=== PATIENT | female | born 1945 | race Caucasian/White ===

== ENCOUNTER → 2017-04-12 | Outpatient (CLI) | payer MEDICARE, MEDICAID | END | disposition home or self-care (01) | LOC: CFH 12:36 → EDSTATUS 12:45 | PROVIDERS: ATTEND Nurse Practitioner | DX: Z13.820 Encounter for screening for osteoporosis (principal); M81.0 Age-related osteoporosis without current pathological fracture; N95.1 Menopausal and female climacteric states | CPT/HCPCS: 77080 ==

== ENCOUNTER → 2018-05-15 | Outpatient (CLI) | payer MEDICARE, MEDICAID | END | disposition home or self-care (01) | LOC: MERGE 12:43 → CFH 12:43 | PROVIDERS: ATTEND Nurse Practitioner | DX: Z12.31 Encounter for screening mammogram for malignant neoplasm of breast (principal) | CPT/HCPCS: 77067 ==

== ENCOUNTER → 2018-06-05 | Outpatient (CLI) | payer MEDICARE, MEDICAID ==
[~2018-06-05] MED LIST: REGADENOSON 0.4 MG/5 ML SYRINGE ONE
== END | disposition home or self-care (01) ==
LOC: CFH 07:44
PROVIDERS: ATTEND Internal Medicine Cardiovascular Disease
DX: I10 Essential (primary) hypertension (principal); R93.1 Abnormal findings on diagnostic imaging of heart and coronary circulation; E11.9 Type 2 diabetes mellitus without complications
CPT/HCPCS: 78452; 93017; 93306; A9502; J2785

== ENCOUNTER → 2018-08-07 | Outpatient (CLI) | payer MEDICARE, MEDICAID | END | disposition home or self-care (01) | LOC: CARD 13:58 | PROVIDERS: ATTEND Internal Medicine Cardiovascular Disease | DX: I27.20 Pulmonary hypertension, unspecified (principal) | CPT/HCPCS: 94060; 94726; 94729 ==

== ENCOUNTER 2019-05-04 07:44 | Day surgery (SDC) | payer MEDICARE, MEDICAID ==
[~2019-05-04] VITALS: Ht 149.9 cm; Wt 82.0 kg
[2019-05-04] MEDS ORDERED: SODIUM CHLORIDE 0.9% 1,000 ML IV SCH (08:38)
[2019-05-04] MEDS ORDERED: PLEASE ENTER HEIGHT AND WEIGHT MC SCH (09:00)
[2019-05-04] MEDS ORDERED: PLEASE ENTER ALLERGIES MC SCH (09:00)
[2019-05-04 09:03] VITALS: BP 171/90
[2019-05-04 10:16] LABS: INTERNATIONAL NORMALIZED RATIO 0.97 (0.93-1.1); PROTHROMBIN TIME 10.2 Seconds (9.6-11.5)
== END 2019-05-04 10:38 | disposition home or self-care (01) ==
LOC: OUT 07:44 → EDSTATUS 09:30 → OUT 10:38
PROVIDERS: ATTEND Nurse Practitioner
DX: I48.91 Unspecified atrial fibrillation (principal); Z53.9 Procedure and treatment not carried out, unspecified reason
CPT/HCPCS: 36415; 85610; J7030

== ENCOUNTER 2019-08-16 23:46 | Emergency (ER) | payer MEDICARE, MEDICAID ==
[~2019-08-16] VITALS: Ht 152.4 cm; Wt 80.4 kg
[~2019-08-16 23:46] MED LIST changes: +ACET-1600 PO; +ASPI-515 PO; +ATOR40TA78 PO; +CALC0.25 PO; +CARV-39 PO; +CARV3.1212 PO; +CARV6.252 PO; +CHOL100015 PO; +CLON2TAB9 PO; +DOXA2TAB9 PO; +DOXA4TAB3 PO; +ERGO500017 PO; +FURO20TA3 PO; +INSULIN SC; +LEVO50TA5 PO; +LINA5TAB PO; +LOSA100T14 PO; +MULT-658 PO; +RANI-467 PO; -REGADENOSON 0.4 MG/5 ML SYRINGE ONE; +TORS20TA PO
[2019-08-17 00:33] VITALS: BP 195/82
== END 2019-08-17 01:08 | disposition home or self-care (01) ==
LOC: ED 08-17 01:02
DX: E11.65 Type 2 diabetes mellitus with hyperglycemia (principal); I12.0 Hypertensive chronic kidney disease with stage 5 chronic kidney disease or end stage renal disease; E11.22 Type 2 diabetes mellitus with diabetic chronic kidney disease; N18.5 Chronic kidney disease, stage 5; E03.9 Hypothyroidism, unspecified; Z90.49 Acquired absence of other specified parts of digestive tract; Z99.2 Dependence on renal dialysis
CPT/HCPCS: 99282

== ENCOUNTER 2019-08-20 13:45 | Emergency (ER) | payer MEDICARE, MEDICAID ==
[~2019-08-20] VITALS: Ht 152.4 cm; Wt 77.3 kg
--- NOTE | 2019-08-20 14:00 | NUR ---
EKG performed in triage.
--- NOTE | 2019-08-20 14:20 | NUR ---
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
--- NOTE | 2019-08-20 14:39 | NUR ---
PT HERE TODAY FOR DIZZINESS, ANXIETY, AND A SORE THROAT. PER PT'S FAMILY PT HAS BEEN MORE ANXIOUS THAN NORMAL LATELY. PT RESTING ON GURNEY. NADN. HYPERTENSIVE AT THIS TIME. FAMILY AT BEDSIDE WITH PT. LAB AT BEDSIDE DRAWING BLOOD NOW.
--- NOTE | 2019-08-20 14:53 | NUR ---
MD AT BEDSIDE ASSESSING PT NOW.
[2019-08-20] MEDS ORDERED: FURO40TA6 PO (14:56)
[2019-08-20] MEDS ORDERED: ALPR0.5T PO (14:56)
[2019-08-20 15:00] LABS: ALBUMIN 2.6 g/dL (3.4-5.0); ANION GAP 5 mmol/L (5-15); CALCIUM 7.8 mg/dL (8.5-10.1); CHLORIDE 94 mmol/L (98-107); CREATININE 2.24 mg/dL (0.55-1.02)
[2019-08-20] MEDS ORDERED: hydrALAzine 20 MG/ML, 1ML IV ONE ×2 (15:00→18:00)
[2019-08-20 15:03] LABS: BASOPHILS % (AUTO) 0 % (0-1); EOSINOPHILS # (AUTO) 0.05 x10^3/uL (0-0.4); EOSINOPHILS % (AUTO) 1 % (1-7); LYMPHOCYTES # (AUTO) 0.95 x10^3/uL (1-3.4); LYMPHOCYTES % (AUTO) 11 % (22-44); MD NO; MEAN CORPUSCULAR HEMOGLOBIN 33.2 pg (27.0-34.8); MEAN CORPUSCULAR HGB CONC 33.1 g/dL (32.4-35.8); MEAN CORPUSCULAR VOLUME 100.3 fL (80-100); MEAN PLATELET VOLUME 6.7 fL (7.4-10.4); MONOCYTES # (AUTO) 0.83 x10^3/uL (0.2-0.8); MONOCYTES % (AUTO) 9 % (2-9); NEUTROPHILS # (AUTO) 7.17 x10^3/uL (1.8-6.8); NEUTROPHILS % (AUTO) 80 % (42-75); PLATELET COUNT 296 x10^3/uL (130-400); RED CELL DISTRIBUTION WIDTH 15.6 % (9.6-15.2)
[2019-08-20] MEDS ORDERED: hydrALAzine 20 MG/ML, 1ML ONE ×2 (15:05→17:57)
[2019-08-20] MEDS ORDERED: hydrOXyzine 50MG TABLET ONE (15:05)
--- NOTE | 2019-08-20 15:18 | NUR ---
PT MEDICATED PER EMAR. RESTING ON GURNEY. RONALN.
--- NOTE | 2019-08-20 16:03 | NUR ---
PT BACK FROM CT, RESTING ON SATCI.
[2019-08-20] MEDS ORDERED: METOCLOPRAMIDE 5 MG/ML, 2ML IVPush ONE (17:00)
[2019-08-20] MEDS ORDERED: METOCLOPRAMIDE 5 MG/ML, 2ML ONE (17:16)
--- NOTE | 2019-08-20 17:18 | NUR ---
PT MEDICATED PER EMAR. RESTING ON GURNEY. CONTINUES TO BE HYPERTENSIVE. IS REFUSING ADMISSION. AWARE.
[2019-08-20 17:20] VITALS: BP 165/104
--- NOTE | 2019-08-20 17:44 | NUR ---
MD AT BEDSIDE DISCUSSING POC WITH PT AND PT'S FAMILY NOW.
--- NOTE | 2019-08-20 18:01 | NUR ---
PT MEDICATED PER EMAR. RESTING ON GURNEY. HYPERTENSIVE. MD AWARE. TO BE DC. GETTING DRESSED NOW.
== END 2019-08-20 18:35 | disposition home or self-care (01) ==
LOC: ED 18:15
DX: I12.0 Hypertensive chronic kidney disease with stage 5 chronic kidney disease or end stage renal disease (principal); E11.22 Type 2 diabetes mellitus with diabetic chronic kidney disease; N18.5 Chronic kidney disease, stage 5; G47.01 Insomnia due to medical condition; Z90.49 Acquired absence of other specified parts of digestive tract; Z99.2 Dependence on renal dialysis
CPT/HCPCS: 36415; 70450; 80048; 82040; 85025; 93005; 96374; 96375; 96376; 99291; J0360; J2765; Q0177

== ENCOUNTER 2019-10-03 16:28 | Emergency (ER) | payer MEDICARE, MEDICAID ==
[~2019-10-03] VITALS: Ht 157.5 cm; Wt 68.6 kg
[~2019-10-03 16:28] MED LIST changes: +ALPR0.5T PO; +FURO40TA6 PO
[2019-10-03 16:43] VITALS: BP 128/52
--- NOTE | 2019-10-03 17:42 | NUR ---
PT HAS CO OF ABDOMINAL PAIN IN LEFT UP QUAD ON THE SIDE. PT IS ON DIAYLSIS, PORT RIGHT CHEST, M,W,FRI. PT HAD 1 EPISODE OF VOMITING YESTERDAY, NONE TODAY. PT STATES SHE THINKS ITS GAS. PT IS PASSING GAS, REGULAR BM. DENIES CP, SOB, DIFFICULTY URINATING. FAMILY AT BEDSIDE TRANSLATING.
[2019-10-03 18:35] LABS: BASOPHILS # (AUTO) 0.03 x10^3/uL (0-0.1); BASOPHILS % (AUTO) 0 % (0-1); EOSINOPHILS # (AUTO) 0.07 x10^3/uL (0-0.4); EOSINOPHILS % (AUTO) 1 % (1-7); LYMPHOCYTES # (AUTO) 1.14 x10^3/uL (1-3.4); LYMPHOCYTES % (AUTO) 15 % (22-44); MD NO; MEAN CORPUSCULAR HGB CONC 33.2 g/dL (32.4-35.8); MEAN CORPUSCULAR VOLUME 99.2 fL (80-100); MEAN PLATELET VOLUME 7.7 fL (7.4-10.4); MONOCYTES # (AUTO) 0.72 x10^3/uL (0.2-0.8); MONOCYTES % (AUTO) 9 % (2-9); NEUTROPHILS # (AUTO) 5.87 x10^3/uL (1.8-6.8); NEUTROPHILS % (AUTO) 75 % (42-75); PLATELET COUNT 284 x10^3/uL (130-400); RED BLOOD COUNT 3.47 x10^6/uL (3.82-5.3); RED CELL DISTRIBUTION WIDTH 14.7 % (9.6-15.2)
[2019-10-03 18:42] LABS: ALANINE AMINOTRANSFERASE 24 U/L (12-78); ALBUMIN 3.3 g/dL (3.4-5.0); ANION GAP 9 mmol/L (5-15); CALCIUM 9.2 mg/dL (8.5-10.1); CHLORIDE 92 mmol/L (98-107); CREATININE 3.07 mg/dL (0.55-1.02)
[2019-10-03 18:44] LABS: ALKALINE PHOSPHATASE 93 U/L (45-117); BILIRUBIN,TOTAL 0.7 mg/dL (0.2-1.0); TOTAL PROTEIN 7.2 g/dL (6.4-8.2)
--- NOTE | 2019-10-03 19:05 | NUR ---
Patient/Caregiver given discharge instructions and they have confirmed that they understand the instructions. Patient ambulatory with steady gait.
--- NOTE | 2019-10-03 19:29 | NUR ---
Patient/Caregiver given discharge instructions and they have confirmed that they understand the instructions. Patient ambulatory with steady gait.
== END 2019-10-03 19:30 | disposition home or self-care (01) ==
LOC: ED 17:41
DX: R10.12 Left upper quadrant pain (principal); R10.13 Epigastric pain; I12.0 Hypertensive chronic kidney disease with stage 5 chronic kidney disease or end stage renal disease; E11.22 Type 2 diabetes mellitus with diabetic chronic kidney disease; N18.5 Chronic kidney disease, stage 5; E03.9 Hypothyroidism, unspecified; Z90.49 Acquired absence of other specified parts of digestive tract
CPT/HCPCS: 36415; 74021; 80053; 83690; 85025; 93005; 99284

== ENCOUNTER → 2020-08-19 | Outpatient (CLI) | payer MEDICARE, MEDICAID ==
[~2020-08-19] MED LIST changes: +ESCI10TA10 PO; +ESTA2TAB PO; +HYDR-3343 PO; +MELA1TAB8 PO; +OMEP-110 PO; +REGADENOSON 0.4 MG/5 ML SYRINGE ONE
== END | disposition home or self-care (01) ==
LOC: RAD 07:35
PROVIDERS: ATTEND Internal Medicine Cardiovascular Disease
DX: I25.9 Chronic ischemic heart disease, unspecified (principal); R93.1 Abnormal findings on diagnostic imaging of heart and coronary circulation; I10 Essential (primary) hypertension
CPT/HCPCS: 78452; 93017; A9502; J2785

== ENCOUNTER 2020-08-29 12:17 | Day surgery (SDC) | payer MEDICARE, MEDICAID ==
[~2020-08-29] VITALS: Ht 142.2 cm; Wt 63.0 kg
[~2020-08-29 12:17] MED LIST changes: -REGADENOSON 0.4 MG/5 ML SYRINGE ONE
[2020-08-29 13:29] VITALS: BP 140/81
[2020-08-29] MEDS ORDERED: CHLORHEXIDINE 15 ML UDC MM STA (13:35)
[2020-08-29] MEDS ORDERED: BUPIVACAINE/PF 0.25% ONE (13:59)
[2020-08-29] MEDS ORDERED: PAPAVERINE 30 MG/ML, 2ML ONE (13:59)
[2020-08-29] MEDS ORDERED: HEPARIN 1,000 UNITS/ML, 10ML ONE (14:00)
[2020-08-29] MEDS ORDERED: LIDOCAINE/PF 1%, 30ML ONE (14:00)
[2020-08-29] MEDS ORDERED: LACTATED RINGERS 1,000 ML IV SCH (14:00)
[2020-08-29 14:27] LABS: BASOPHILS % (AUTO) 1 % (0-1); EOSINOPHILS % (AUTO) 2 % (1-7); LYMPHOCYTES % (AUTO) 10 % (22-44); MEAN CORPUSCULAR HEMOGLOBIN 33.5 pg (27.0-34.8); MEAN PLATELET VOLUME 8.6 fL (7.4-10.4); MONOCYTES % (AUTO) 8 % (2-9); NEUTROPHILS % (AUTO) 80 % (42-75); PLATELET COUNT 210 x10^3/uL (130-400); RED BLOOD COUNT 3.39 x10^6/uL (3.82-5.3); RED CELL DISTRIBUTION WIDTH 14.5 % (9.6-15.2)
[2020-08-29] MEDS ORDERED: PROMETHAZINE 25 MG/ML, 1ML IVPush PRN (14:30)
[2020-08-29] MEDS ORDERED: SODIUM CHLORIDE 0.9% 1,000 ML IV SCH (14:30)
[2020-08-29] MEDS ORDERED: HYDROmorphone 1 MG/ML, 1ML INJ IVPush PRN (14:30)
[2020-08-29] MEDS ORDERED: OXYcodone 5 MG/5 ML ORAL.SOL UDC PO PRN (14:30)
[2020-08-29] MEDS ORDERED: HALOPERIDOL 5 MG/ML IV PRN (14:30)
[2020-08-29] MEDS ORDERED: FENTANYL PF 100 MCG/2ML IV PRN (14:30)
[2020-08-29] MEDS ORDERED: LABETALOL 5MG/ML, 20ML IV PRN (14:30)
[2020-08-29] MEDS ORDERED: hydrALAzine 20 MG/ML, 1ML IV PRN (14:30)
[2020-08-29 14:36] LABS: ANION GAP 12 mmol/L (5-15); CALCIUM 8.8 mg/dL (8.5-10.1); CHLORIDE 94 mmol/L (98-107)
[2020-08-29 14:37] LABS: CREATININE 6.49 mg/dL (0.55-1.02)
[2020-08-29 14:40] LABS: MD NO
[2020-08-29] MEDS ORDERED: FENTANYL PF 100 MCG/2ML ONE (15:41)
[2020-08-29] MEDS ORDERED: NEOSTIGMINE 1 MG/ML, 10ML ONE (16:23)
[2020-08-29] MEDS ORDERED: ONDANSETRON 2MG/ML, 2ML ONE ×2 (16:23→19:11)
[2020-08-29] MEDS ORDERED: DEXAMETHASONE 4 MG/ML, 1ML ONE (16:23)
[2020-08-29] MEDS ORDERED: CEFAZOLIN 1,000 MG ONE (16:23)
[2020-08-29] MEDS ORDERED: SUCCINYLCHOLINE 20 MG/ML, 10ML ONE (16:23)
[2020-08-29] MEDS ORDERED: GLYCOPYRROLATE 0.2MG/1ML, 5ML ONE (16:23)
[2020-08-29] MEDS ORDERED: ROCURONIUM 10MG/ML,5ML ONE (16:23)
[2020-08-29] MEDS ORDERED: PROPOFOL 10 MG/ML, 20ML ONE (16:23)
[2020-08-29] MEDS ORDERED: SODIUM CHLORIDE 0.9% IVPB ONE (20:30)
[2020-08-29] MEDS ORDERED: DESMOPRESSIN IVPB ONE (20:30)
[2020-08-29] MEDS ORDERED: HYDROcodone/APAP 5/325 TABLET ONE (20:32)
== END 2020-08-29 22:20 | disposition home or self-care (01) ==
LOC: OR 12:17
PROVIDERS: ATTEND Surgery
DX: E11.22 Type 2 diabetes mellitus with diabetic chronic kidney disease (principal); I12.0 Hypertensive chronic kidney disease with stage 5 chronic kidney disease or end stage renal disease; N18.6 End stage renal disease; E03.9 Hypothyroidism, unspecified; E87.1 Hypo-osmolality and hyponatremia; K21.9 Gastro-esophageal reflux disease without esophagitis; G47.33 Obstructive sleep apnea (adult) (pediatric); I27.20 Pulmonary hypertension, unspecified; E21.3 Hyperparathyroidism, unspecified; Z79.4 Long term (current) use of insulin; Z79.899 Other long term (current) drug therapy
CPT/HCPCS: 36415; 36832; 80048; 82962; 85025; 87635; 93005; J0330; J0690; J1100; J1644; J2405; J2704; J3010; J7030; J2710; J2440

== ENCOUNTER 2020-09-09 09:54 | Inpatient (IN) | payer MEDICARE, MEDICAID ==
[~2020-09-09] VITALS: Ht 152.4 cm; Wt 65.3 kg
--- NOTE | 2020-09-09 10:50 | NUR ---
PT HERE FOR "ABNORMAL RESULTS" ON ECHOCARDIOGRAM WHICH WAS DONE THREE WEEKS AGO, NO ONE TOLD THE PT WHAT THE ABNORMAL RESULT WAS, PT HERE TO FIND OUT. PT HAD A STRESS TEST ALSO AT THAT TIME, PT WAS TOLD THAT WAS NORMAL. PT DENIES CP/SOB, PAIN OF ANY KIND.
--- NOTE | 2020-09-09 12:07 | NUR ---
ERP IN TO UPDATE PT ON POC, PT TO BE ADMITTED. PIV INITIATED, BC X1 SET DRAWN. VSS, NO NEEDS AT THIS TIME
[2020-09-09 12:35] LABS: HCT (SEDRATE) 29.8 % (34.6-47.8)
[2020-09-09 12:36] LABS: BASOPHILS % (AUTO) 1 % (0-1); EOSINOPHILS % (AUTO) 1 % (1-7); LYMPHOCYTES % (AUTO) 8 % (22-44); MEAN CORPUSCULAR HEMOGLOBIN 33.4 pg (27.0-34.8); MEAN CORPUSCULAR HGB CONC 33.3 g/dL (32.4-35.8); MEAN PLATELET VOLUME 8.3 fL (7.4-10.4); MONOCYTES % (AUTO) 8 % (2-9); NEUTROPHILS % (AUTO) 83 % (42-75); PLATELET COUNT 226 x10^3/uL (130-400); RED BLOOD COUNT 3.01 x10^6/uL (3.82-5.3); RED CELL DISTRIBUTION WIDTH 15.2 % (9.6-15.2)
[2020-09-09 12:44] LABS: ALBUMIN 3.5 g/dL (3.4-5.0); ANION GAP 11 mmol/L (5-15); C-REACTIVE PROTEIN, QUANT 0.94 mg/dL (0.02-0.49); CALCIUM 8.8 mg/dL (8.5-10.1); CHLORIDE 91 mmol/L (98-107); CREATININE 4.53 mg/dL (0.55-1.02)
[2020-09-09 12:54] LABS: MD NO
--- NOTE | 2020-09-09 13:44 | NUR ---
PT REPOSITIONED ON GURNEY FOR COMFORT, DAUGHTER AT BEDSIDE, VSS, NAD NOTED. AWAITING BED PLACEMENT
--- NOTE | 2020-09-09 14:57 | NUR ---
SPOKE WITH HOSPITALIST, LUZ MARIA NOT TO HAPPEN TODAY, PT MAY EAT, WILL UPDATE FAMILY/PT
[2020-09-09] MEDS ORDERED: ONDANSETRON ODT 4 MG PO PRN (15:00)
[2020-09-09] MEDS: HEPARIN 5,000 UNITS/ML, 1ML SQ SCH ×2 (15:00→23:00)
[2020-09-09] MEDS ORDERED: ONDANSETRON 2MG/ML, 2ML IVPush PRN (15:00)
[2020-09-09] MEDS ORDERED: ERGOCALCIFEROL 50,000 UNIT CAPSULE PO SCH (15:00)
--- NOTE | 2020-09-09 15:46 | NUR ---
MEAL TRAY PROVIDED TO PT, REPORT GIVEN BY SHEFALI BLACK. AWAITING TRANSPORT
[2020-09-09] MEDS: INSULIN LISPRO 100 UNITS/ML, PEN SQ-INSULIN SCH ×2 (16:00→21:00)
[2020-09-09 16:15] VITALS: BP 135/57
[2020-09-09] MEDS ORDERED: MELATONIN 5 MG TABLET PO PRN (16:30)
[2020-09-09] MEDS: CARVEDILOL 3.125 MG TABLET PO SCH (17:17)
[2020-09-09] MEDS: ACETAMINOPHEN 325 MG TABLET PO PRN (18:44)
[2020-09-09 19:32] VITALS: BP 136/91
[2020-09-09] MEDS ORDERED: TEMPLATE NON-FORMULARY MED. (Melatonin/Pyridoxine Hcl (B6)** (Melatonin 5 Mg Tablet**) 1 T PO SCH (21:00)
[2020-09-09] MEDS ORDERED: MELATONIN 5 MG TABLET PO SCH (21:00)
[2020-09-09] MEDS ORDERED: ATORVASTATIN 40 MG TABLET PO SCH (21:00)
[2020-09-09] MEDS ORDERED: DOXAZOSIN 2MG TABLET PO SCH (21:00)
[2020-09-10 00:26] VITALS: BP 134/83
[2020-09-10] MEDS: ACETAMINOPHEN 325 MG TABLET PO PRN ×2 (00:36→12:47)
[2020-09-10] MEDS: CARVEDILOL 3.125 MG TABLET PO SCH (05:03)
[2020-09-10] MEDS: HEPARIN 5,000 UNITS/ML, 1ML SQ SCH ×2 (05:03→15:00)
[2020-09-10] MEDS ORDERED: LEVOTHYROXINE 75 MCG TABLET PO SCH (06:00)
[2020-09-10 06:53] VITALS: BP 114/68
[2020-09-10 06:54] VITALS: BP 124/79
[2020-09-10 06:57] LABS: BASOPHILS % (AUTO) 1 % (0-1); EOSINOPHILS % (AUTO) 2 % (1-7); LYMPHOCYTES % (AUTO) 12 % (22-44); MEAN CORPUSCULAR HEMOGLOBIN 33.3 pg (27.0-34.8); MEAN CORPUSCULAR HGB CONC 33.6 g/dL (32.4-35.8); MONOCYTES % (AUTO) 10 % (2-9); NEUTROPHILS % (AUTO) 75 % (42-75); PLATELET COUNT 207 x10^3/uL (130-400); RED BLOOD COUNT 2.86 x10^6/uL (3.82-5.3); RED CELL DISTRIBUTION WIDTH 15.1 % (9.6-15.2)
[2020-09-10] MEDS: INSULIN LISPRO 100 UNITS/ML, PEN SQ-INSULIN SCH ×2 (07:00→12:46)
[2020-09-10 07:01] LABS: MD NO
[2020-09-10 07:11] LABS: ALANINE AMINOTRANSFERASE 18 U/L (12-78); ALBUMIN 3.1 g/dL (3.4-5.0); ANION GAP 10 mmol/L (5-15); CALCIUM 8.4 mg/dL (8.5-10.1); CHLORIDE 100 mmol/L (98-107); CREATININE 3.19 mg/dL (0.55-1.02)
[2020-09-10 07:16] LABS: ALKALINE PHOSPHATASE 93 U/L (45-117); BILIRUBIN,TOTAL 0.9 mg/dL (0.2-1.0); TOTAL PROTEIN 6.7 g/dL (6.4-8.2)
[2020-09-10] MEDS ORDERED: OMEPRAZOLE 20 MG CAPSULE.DR PO SCH (07:30)
[2020-09-10 07:33] LABS: D-DIMER 1.62 ug/mlFEU (0.00-0.52)
[2020-09-10] MEDS ORDERED: FUROSEMIDE 40 MG TABLET PO SCH (09:00)
[2020-09-10] MEDS ORDERED: ASPIRIN 81 MG TABLET EC PO SCH (09:00)
[2020-09-10] MEDS ORDERED: ESCITALOPRAM 10MG TABLET PO SCH (09:00)
[2020-09-10] MEDS ORDERED: MULTIVITAMIN 1 TABLET PO SCH (09:00)
[2020-09-10] MEDS ORDERED: PYRIDOXINE (VITAMIN B6) 100 MG TAB PO SCH (09:00)
[2020-09-10] MEDS ORDERED: CALCITRIOL 0.25 MCG CAPSULE PO SCH (09:00)
[2020-09-10 12:06] VITALS: BP 111/71
[2020-09-10] MEDS ORDERED: DOXA2TAB9 PO (16:04)
[2020-09-10] MEDS ORDERED: HYDR-3343 PO (16:04)
[2020-09-10] MEDS ORDERED: CARV3.1212 PO (16:04)
== END 2020-09-10 16:50 | disposition home or self-care (01) | DRG 306 ==
LOC: ED 10:46 → EDIP 13:13 → 4WST 14:16 → EDIP 14:22 → 4WST 14:23 → EDIP 14:25 → 4WST 16:07 → DCLOUNGE 09-10 16:40
PROVIDERS: ADMIT Hospitalist; ATTEND Internal Medicine
DX: I38 Endocarditis, valve unspecified (principal); N18.6 End stage renal disease; E87.1 Hypo-osmolality and hyponatremia; I13.2 Hypertensive heart and chronic kidney disease with heart failure and with stage 5 chronic kidney disease, or end stage renal disease; I50.32 Chronic diastolic (congestive) heart failure; N04.9 Nephrotic syndrome with unspecified morphologic changes; D53.9 Nutritional anemia, unspecified; E03.9 Hypothyroidism, unspecified; E11.22 Type 2 diabetes mellitus with diabetic chronic kidney disease; G47.33 Obstructive sleep apnea (adult) (pediatric); I07.1 Rheumatic tricuspid insufficiency; D63.8 Anemia in other chronic diseases classified elsewhere; I05.0 Rheumatic mitral stenosis; I25.10 Atherosclerotic heart disease of native coronary artery without angina pectoris; K29.70 Gastritis, unspecified, without bleeding; Z99.2 Dependence on renal dialysis; Z79.4 Long term (current) use of insulin; Z79.890 Hormone replacement therapy; Z90.49 Acquired absence of other specified parts of digestive tract
CPT/HCPCS: 36415; 71045; 80048; 80053; 81240; 82040; 82378; 82962; 83605; 83735; 83880; 84100; 84145; 85025; 85300; 85301; 85302; 85303; 85305; 85306; 85379; 85384; 85651; 86038; 86140; 86301; 86304; 87040; 90935; 93005; 99291; G0378; J1815

== ENCOUNTER → 2020-09-09 | Outpatient (CLI) | payer MEDICARE, MEDICAID | END | disposition home or self-care (01) | LOC: CVU 08:16 | PROVIDERS: ATTEND Internal Medicine Cardiovascular Disease | DX: I08.8 Other rheumatic multiple valve diseases (principal); I11.9 Hypertensive heart disease without heart failure | CPT/HCPCS: 93306 ==

== ENCOUNTER 2020-09-21 14:18 | Emergency (ER) | payer MEDICARE, MEDICAID ==
[~2020-09-21] VITALS: Ht 152.4 cm; Wt 66.0 kg
[2020-09-21 15:22] LABS: BASOPHILS % (AUTO) 0 % (0-1); EOSINOPHILS % (AUTO) 0 % (1-7); LYMPHOCYTES % (AUTO) 7 % (22-44); MEAN CORPUSCULAR HEMOGLOBIN 32.6 pg (27.0-34.8); MEAN CORPUSCULAR HGB CONC 33.1 g/dL (32.4-35.8); MEAN PLATELET VOLUME 9.1 fL (7.4-10.4); MONOCYTES % (AUTO) 6 % (2-9); NEUTROPHILS % (AUTO) 87 % (42-75); PLATELET COUNT 145 x10^3/uL (130-400); RED BLOOD COUNT 2.83 x10^6/uL (3.82-5.3); RED CELL DISTRIBUTION WIDTH 15.9 % (9.6-15.2)
[2020-09-21 15:23] VITALS: BP 142/70
[2020-09-21 15:34] LABS: ALBUMIN 3.4 g/dL (3.4-5.0); ANION GAP 13 mmol/L (5-15); CALCIUM 7.8 mg/dL (8.5-10.1); CHLORIDE 89 mmol/L (98-107); CREATININE 5.11 mg/dL (0.55-1.02)
--- NOTE | 2020-09-21 15:45 | NUR ---
JEVON RN: PT UPRIGHT ON MARIANARRUIDOSO DOWNS AWAKE & COMFORTABLE, EPISTAXIS REMAINS CONTROLLED WITH NASAL TAMPONADE, RESPONDS APPROP TO STAFF, NAD, NO NEEDS AT THIS TIME, VISITOR AT BS, CALL LIGHT WITHIN REACH. Addendum: 09/21/20 at 1547 by LEIGHA SHEFALI RN: PT UPRIGHT ON MARIANARLUKAS AWAKE & COMFORTABLE, EPISTAXIS REMAINS CONTROLLED WITH NASAL TAMPONADE, RESPONDS APPROP TO STAFF, RONAL, NO NEEDS AT THIS TIME, VISITOR AT BS, CALL LIGHT WITHIN REACH.
[2020-09-21 15:47] LABS: MD NO
--- NOTE | 2020-09-21 16:10 | NUR ---
Patient & daughter given discharge instructions and Rx, they have confirmed that they understand the instructions. Patient ambulatory with steady gait.
== END 2020-09-21 16:18 | disposition home or self-care (01) ==
LOC: ED 15:49
DX: R04.0 Epistaxis (principal); R53.1 Weakness; E03.9 Hypothyroidism, unspecified; I12.0 Hypertensive chronic kidney disease with stage 5 chronic kidney disease or end stage renal disease; N18.5 Chronic kidney disease, stage 5; E10.22 Type 1 diabetes mellitus with diabetic chronic kidney disease; Z99.2 Dependence on renal dialysis
CPT/HCPCS: 36415; 80048; 82040; 85025; 99283

== ENCOUNTER → 2020-11-29 | Outpatient (CLI) | payer MEDICARE, MEDICAID ==
[~2020-11-29] MED LIST changes: -ASPI-515 PO; +ASPI-963 PO; +FAMO20TA7 PO; +INSU100I13 SC
== END | disposition home or self-care (01) ==
LOC: RAD 09:38 → EDSTATUS 10:00
DX: M79.89 Other specified soft tissue disorders (principal)
CPT/HCPCS: 93970

== ENCOUNTER 2021-01-10 22:40 | Emergency (ER) | payer MEDICARE, MEDICAID ==
[~2021-01-10] VITALS: Ht 142.2 cm; Wt 70.0 kg
[2021-01-10] MEDS ORDERED: LIDOCAINE 2% VISCOUS 15 ML UDC MM ONE (23:30)
[2021-01-10] MEDS ORDERED: TRANEXAMIC ACID 100 MG/ML, 10ML ONE ×2 (23:30→23:55)
[2021-01-10] MEDS ORDERED: TRANEXAMIC ACID 100 MG/ML, 10ML TP ONE (23:30)
[2021-01-10] MEDS ORDERED: PHENYLEPHRINE NASAL 1%, 30ML DROPS NAS ONE (23:30)
[2021-01-10] MEDS ORDERED: PHENYLEPHRINE NASAL 1%, 15ML SPRAY ONE ×2 (23:31→23:55)
[2021-01-10] MEDS ORDERED: LIDOCAINE-MPF 2% ,5ML ONE (23:31)
[2021-01-10] MEDS ORDERED: LIDOCAINE 2% VISCOUS 15 ML UDC ONE (23:55)
--- NOTE | 2021-01-11 00:10 | NUR ---
TASK RN: MD AT BEDSIDE
--- NOTE | 2021-01-11 00:13 | NUR ---
BREAK RN: PER . PT TO BE REASSESSED IN 30 MIN. IF BLEEDING CONTINUES TO BE CONTROLLED PT TO BE DC'D
[2021-01-11] MEDS ORDERED: SILVER NITRATE STICK TP ONE ×2 (00:40→01:00)
[2021-01-11 00:42] VITALS: BP 119/64
--- NOTE | 2021-01-11 00:44 | NUR ---
VSS, pt with LA fistula rcd dialysis yesterday.
--- NOTE | 2021-01-11 01:02 | NUR ---
Packing done by Dr Robbins, instruct re: no blowing nose etc. Return to ER if worse or concerns.
--- NOTE | 2021-01-11 01:06 | NUR ---
Report to Usha Mitchell
== END 2021-01-11 01:20 | disposition home or self-care (01) ==
LOC: ED 01-11 00:36
DX: R04.0 Epistaxis (principal); I12.0 Hypertensive chronic kidney disease with stage 5 chronic kidney disease or end stage renal disease; E11.22 Type 2 diabetes mellitus with diabetic chronic kidney disease; N18.6 End stage renal disease; Z90.49 Acquired absence of other specified parts of digestive tract
CPT/HCPCS: 30901; 93005; 99284

== ENCOUNTER 2021-02-18 11:23 | Emergency (ER) | payer MEDICARE, MEDICAID ==
[~2021-02-18] VITALS: Ht 152.4 cm; Wt 67.7 kg
--- NOTE | 2021-02-18 12:09 | NUR ---
PT TO ROOM 10 W/ C/O ABD DISTENTION X 2 WEEKS. PT STATES SHE WAS AT DIALYSIS YESTERDAY AND WAS TOLD SHE HAD FLUID IN HER ABDOMEN. PT DENIES ANY ABD PAIN/SOB/DISTENTION. PT RESTING ON GURNEY. NADN. MONITORS APPLIED. VSS. ON 2L NC. WEARS 2L NC AT HOME. FAMILY AT BEDSIDE. ERP DR. KINNEY AT BEDSIDE FOR EVAL.
[2021-02-18 12:37] VITALS: BP 120/63
== END 2021-02-18 12:39 | disposition home or self-care (01) ==
LOC: ED 12:00
DX: R18.8 Other ascites (principal); R14.0 Abdominal distension (gaseous); I12.0 Hypertensive chronic kidney disease with stage 5 chronic kidney disease or end stage renal disease; N18.5 Chronic kidney disease, stage 5; E03.9 Hypothyroidism, unspecified; Z90.49 Acquired absence of other specified parts of digestive tract
CPT/HCPCS: 99284